=== PATIENT | female | born 1975 | race Caucasian/White ===

== ENCOUNTER 2021-01-17 08:33 | Outpatient (CLI) | payer BC | END 2021-01-17 08:34 | disposition home or self-care (01) | LOC: CSHRAD 08:33 | PROVIDERS: ATTEND Surgery | DX: K21.9 Gastro-esophageal reflux disease without esophagitis (principal); K31.84 Gastroparesis; Z90.49 Acquired absence of other specified parts of digestive tract | CPT/HCPCS: 74246 ==